=== PATIENT | male | born 2000 | race Caucasian/White ===

== ENCOUNTER 2018-02-09 18:33 | Emergency (ER) | payer SELFPAY | END 2018-02-09 18:49 | disposition home or self-care (01) | LOC: SCSER 18:33 | DX: R21 Rash and other nonspecific skin eruption (principal) | CPT/HCPCS: 99282 ==

== ENCOUNTER 2018-04-26 13:02 | Emergency (ER) | payer OTHER, SELFPAY | END 2018-04-26 13:20 | disposition home or self-care (01) | LOC: SCSER 13:02 | DX: S13.4XXA Sprain of ligaments of cervical spine, initial encounter (principal); V89.2XXA Person injured in unspecified motor-vehicle accident, traffic, initial encounter | CPT/HCPCS: 99283 ==